=== PATIENT | male | born 1985 | race Caucasian/White ===

== ENCOUNTER 2020-08-15 06:00 | Emergency (ER) | payer OTHER ==
[2020-08-15] MEDS ORDERED: IBUPROFEN 600 MG TABLET (FP) PO ONE (07:16)
[2020-08-15] MEDS ORDERED: MAG HYDROX/AL HYDROX/SIMETH 30 ML UNIT-DOSE CUP PO ONE (07:16)
[2020-08-15] MEDS ORDERED: ALPRAZolam 0.25 MG TABLET PO ONE (07:16)
[2020-08-15 07:17] VITALS: BP 117/88; PULSE 93; TEMP 98.2; BMI 29.4
--- NOTE | 2020-08-15 07:20 | PDOC ---
*Physical Exam - Vital Signs Last Vital Signs Temp Pulse Resp BP Pulse Ox 98.2 F 93 H 18 117/88 100 08/15/20 07:12 08/15/20 07:12 08/15/20 07:12 08/15/20 07:12 08/15/20 07:12 ED Treatment Course - LABORATORY CBC & Chemistry Diagram: 08/15/20 07:00 - RADIOLOGY Radiology Studies Ordered: Category Date Time Status CHEST PA & LAT [RAD] Stat Radiology 08/15/20 07:17 Ordered Medical Decision Making - Medical Decision Making 08/15/20 07:19 pt signed out from Dr Floyd at 7AM, encounter initially during [facility] downtime 4AM to 7AM in summary, 34 YOM presenting with chest pain x 12 hours EKG with NSR at 78 bpm ordered for cbc, cmp, cardiac profile, CXR and analgesia motrin, xanax and maalox given, reassess 08/15/20 08:15 Chest x-ray without acute abnormalities, old rib tract fracture/trauma is noted. Minimal vertebral wedging, normal mediastinum and and no evidence of infiltrate or edema. There is ill-defined density seen in the anterior aspect of the right fourth rib, patient is nontender there information was relayed to the patient so he can have appropriate follow-up and CT imaging. - pt states he had pectus excavatum, had prior chest surgery when he was a teenager. 08/15/20 08:54 Laboratory results were physically on paper from laboratory center and was reviewed which will be inputted into the system. Electrolytes are normal, glucose is 93, fattening 0.93. LFTs and CK level normal. Negative troponin 0 0.016 for assay. CBC is also normal, WBC count is 8K, hemoglobin 14.9 and hematocrit 43.7 no evidence of anemia. Platelet count is 205. Patient feels improved, results discussed, Pt to be discharged in stable condition. Patient and family made aware of clinical impression, treatment recommendations and disposition plan, return precautions discussed (including but not limited to new or persistent/worsening symptoms, pain, fevers, or signs of infection, chest pain, respiratory distress, inability to tolerate oral intake, dehydration, syncope, or neurologic changes). Follow up with PMD and/or specialist as recommended, follow up information provided, take medications as instructed for duration of time. continue with supportive care, avoid triggers and precipitants. All questions answered to patient's satisfaction and expressed understanding and comfort with this. At the time of discharge, the patient is alert, clinically improved, tolerating po and verbalizes understanding of instructions, satisfied with the care received and felt comfortable with the plan. Patient does not suffer from an acute life-threatening medical condition at this time and is safe for outpatient follow-up. 08/15/20 09:05 08/15/20 09:05 Discharge - Discharge Information Problems reviewed: Yes Clinical Impression/Diagnosis: Chest pain Condition: Good Disposition: HOME - Admission No - Follow up/Referral Referrals: Nehal Romero MD [Primary Care Provider] - - Patient Discharge Instructions Patient Printed Discharge Instructions: DI for Chest Pain Additional Instructions: 1) Please follow-up with your primary care doctor in the next 1-2 days. Please call tomorrow for for any urgent issues. 2) You were given a copy of the tests performed today. Please bring the results with you and review them with your primary care doctor. Your laboratory / imaging results were normal, you have a chest xray showing old trauma, and ill defined density involving the right 4th rib that needs to be followed up with further imaging and your doctor. 3) If you have any worsening of symptoms or any other concerns please return to the ED immediately. Return if worsening symptoms including fevers, headache, vomiting, visual or hearing disturbances, abdominal pain, chest pain, shortness of breath, syncope, dehydration, inability to take things by mouth/vomiting, altered mental status, or worsening concerning symptoms. 4) Please continue taking your home medications as directed. Stay well hydrated and rest adequately. Make an appointment. If you cannot follow-up with your primary care doctor please return to the ED - Post Discharge Activity
[2020-08-15 09:58] LABS: BASO % 0.5 % (0-2.0); EOS % 2.2 % (0-4.5); HEMATOCRIT 43.7 % (35.4-49); HEMOGLOBIN 14.9 GM/dl (11.7-16.9); LYMPH % 21.5 % (8-40); MCH 30.7 pg (25.7-33.7); MCHC 34.2 g/dl (32.0-35.9); MEAN CELL VOLUME 89.8 fl (80-96); MEAN PLT VOLUME 10.5 fl (7.5-11.1); MONO % 8.3 % (3.8-10.2); NEUT % 67.5 % (42.8-82.8); PLATELET COUNT 205 K/MM3 (134-434); RBC 4.86 M/mm3 (4.00-5.60); RDW 11.7 % (11.9-15.9); WHITE BLOOD COUNT 8.3 K/mm3 (4.0-10.8)
[2020-08-15 13:20] LABS: ALBUMIN 4.2 g/dl (3.4-5.0); BILIRUBIN,TOTAL 0.7 mg/dl (0.2-1); CALCIUM 9.2 mg/dl (8.5-10); CREATININE 0.9 mg/dl (0.55-1.3); TOT PROT 7.2 g/dl (6.4-8.2)
--- NOTE | 2020-08-16 10:07 | EKG ---
Test Reason : Blood Pressure : / mmHG Vent. Rate : 078 BPM Atrial Rate : 078 BPM P-R Int : 168 ms QRS Dur : 092 ms QT Int : 368 ms P-R-T Axes : 029 065 041 degrees QTc Int : 419 ms NORMAL SINUS RHYTHM Possible left atrial enlargement NO PREVIOUS ECGS AVAILABLE Confirmed by MALIA ALANIZ MD ([id number]) on 08/16/2020 10:07:08 AM Referred By: MD GONZALEZ Confirmed By:MALIA ALANIZ MD
--- NOTE | 2020-08-16 20:35 | PDOC ---
History of Present Illness - General Chief Complaint: Chest Pain Stated Complaint: CHEST PAIN Time Seen by Provider: 08/15/20 07:11 History Source: Patient Exam Limitations: No Limitations - History of Present Illness Initial Comments: 08/16/20 20:34 Chart was written on 08/16 however patient was seen on 08/15. During [facility] downtime 4 AM to 7 AM patient is a 35-year-old male with approximately 2 hours of chest pain. Patient described pain as a squeezing sensation with some shortness of breath. Patient denied any radiation. There is some associated nausea patient vomited x1 but denies any diaphoresis. Patient does not have any cardiac risk factors. As per his history. Allergies: as per nursing notes Past Medical History: none Social history: Lives with family. No smoking. No alcohol. No illicit drugs. Surgical history: None General: No fevers or chills, no weakness, no weight loss HEENT: No change in vision. No sore throat,. No ear pain CardioVascular: +chest discomfort. + shortness of breath Respiratory:No cough, or wheezing. Gastrointestinal: no nausea, vomiting, diarrhea or constipation, No rectal bleeding Genitourinary: No dysuria, hematuria, or frequency Musculoskeletal: No joint or muscle pain or swelling Neurologic: No headache, vertigo, dizziness or loss of consciousness Psychiatric: nor depression Skin: No rashes or easy bruising Endocrine: no increased thirst or abnormal weight change Allergic: no skin or latex allergy All other systems reviewed and normal Exam: General: Well-nourished well-developed individual, no acute distress HEENT: Throat: Normal, tonsils normal, no erythema or exudate Neck: Supple, no meningeal signs, no lymphadenopathy Eyes::Pupils equal reactive and round, extraocular motion intact Chest: Nontender to palpation Cardiac: S1-S2 normal, regular rate and rhythm, no murmurs rubs or gallops Respiratory: Lungs clear to auscultation bilateral Abdomen: Soft, nondistended, normal bowel sounds, there is no tenderness on palpation diffusely Extremities: Warm, dry, no cyanosis, clubbing, or edema Skin: No rashes Neuro: Alert and oriented x3, CN II - XII intact, nonfocal exam with normal strength, normal sensation, normal reflexes, normal gait, Psych: Normal mood and affect Plan: This is a 34-year-old male whose work-up is still in progress. Care of patient was transferred to Dr. Richey at 7 AM. Past History - Medical History Allergies/Adverse Reactions: Allergies Allergy/AdvReac Type Severity Reaction Status Date / Time No Known Allergies Allergy Verified 08/15/20 07:46 Home Medications: Ambulatory Orders Diphenhydramine [Benadryl -] 50 mg PO DAILY 08/15/20 COPD: No - Psycho-Social/Smoking History Smoking History: Never smoked Have you smoked in the past 12 months: No - Substance Abuse Hx (Audit-C & DAST Scrn) How often the patient has a drink containing alcohol: Never Score: In Men: 4 or > Positive; In Women: 3 or > Positive: 0 Screen Result (Pos requires Nsg. Audit-10AR): Negative In the last yr the pt used illegal drug/Rx for NonMed reason: No Score: Yes response is considered Positive: 0 Screen Result (Positive result requires Nsg. DAST-10): Negative *Physical Exam - Vital Signs Last Vital Signs Temp Pulse Resp BP Pulse Ox 98.2 F 93 H 18 117/88 100 08/15/20 07:12 08/15/20 07:12 08/15/20 07:12 08/15/20 07:12 08/15/20 07:12 ED Treatment Course - LABORATORY CBC & Chemistry Diagram: 08/15/20 07:00 08/15/20 07:19 - ADDITIONAL ORDERS Additional order review: 08/15/20 07:00 RBC 4.86 MCV 89.8 MCHC 34.2 RDW 11.7 L MPV 10.5 Neutrophils % 67.5 Lymphocytes % 21.5 Monocytes % 8.3 Eosinophils % 2.2 Basophils % 0.5 - Medications Given in the ED: ED Medications Discontinued Medications Generic Name Dose Route Start Last Admin Trade Name Freq PRN Reason Stop Dose Admin Al Hydroxide/Mg Hydroxide 30 ml 08/15/20 07:16 08/15/20 07:40 Mylanta Oral Suspension - PO 08/15/20 07:17 30 ml ONCE ONE Administration Alprazolam 0.5 mg 08/15/20 07:16 08/15/20 07:40 Xanax - PO 08/15/20 07:17 0.5 mg ONCE ONE Administration Ibuprofen 600 mg 08/15/20 07:16 08/15/20 07:40 Motrin - PO 08/15/20 07:17 600 mg ONCE ONE Administration Discharge - Discharge Information Problems reviewed: Yes Clinical Impression/Diagnosis: Chest pain Qualifiers: Chest pain type: unspecified Qualified Code(s): R07.9 - Chest pain, unspecified Condition: Good Disposition: HOME - Follow up/Referral Referrals: Nehal Romero MD [Primary Care Provider] - - Patient Discharge Instructions Patient Printed Discharge Instructions: DI for Chest Pain Additional Instructions: 1) Please follow-up with your primary care doctor in the next 1-2 days. Please call tomorrow for for any urgent issues. 2) You were given a copy of the tests performed today. Please bring the results with you and review them with your primary care doctor. Your laboratory / imaging results were normal, you have a chest xray showing old trauma, and ill defined density involving the right 4th rib that needs to be followed up with further imaging and your doctor. 3) If you have any worsening of symptoms or any other concerns please return to the ED immediately. Return if worsening symptoms including fevers, headache, v omiting, visual or hearing disturbances, abdominal pain, chest pain, shortness of breath, syncope, dehydration, inability to take things by mouth/vomiting, altered mental status, or worsening concerning symptoms. 4) Please continue taking your home medications as directed. Stay well hydrated and rest adequately. Make an appointment. If you cannot follow-up with your primary care doctor please return to the ED - Post Discharge Activity
== END 2020-08-15 09:01 | disposition home or self-care (01) ==
LOC: FER 06:00
DX: R07.9 Chest pain, unspecified (principal)
CPT/HCPCS: 36415; 71046-TC-FY; 80053; 82550; 84484; 85025; 93005; 99285-25